=== PATIENT | female | born 1955 | race African-American/Black ===

== ENCOUNTER 2017-01-23 15:30 | Outpatient (CLI) | payer MEDICARE ==
[2017-01-23 16:07] LABS: EOSINOPHILS % (AUTO) 3.9 % (0.0-3.0); LYMPHOCYTES % (AUTO) 34.7 % (20.0-45.0); MEAN CORPUSCULAR HEMOGLOBIN 30.5 PG (27.0-31.0); MEAN CORPUSCULAR HGB CONC 33.4 G/DL (32.0-36.0); MEAN CORPUSCULAR VOLUME 91 FL (80-99); MEAN PLATELET VOLUME 6.1 FL (6.5-10.1); MONOCYTES % (AUTO) 6.5 % (1.0-10.0); NEUTROPHILS % (AUTO) 53.9 % (45.0-75.0); PLATELET COUNT 266 K/UL (150-450); RED BLOOD COUNT 4.78 M/UL (4.20-5.40); RED CELL DISTRIBUTION WIDTH 12.5 % (11.6-14.8); WHITE BLOOD COUNT 5.8 K/UL (4.8-10.8)
--- NOTE | 2017-01-23 16:37 | Diagnostic Imaging Report ---
Indication: COUGH Technique: 2 views of the chest Comparison: none. Findings: Lungs and pleural spaces are clear. Heart size is normal. Bones are unremarkable.. Impression: No acute process
[2017-01-23 16:38] LABS: ALANINE AMINOTRANSFERASE 23 U/L (3-33); ALBUMIN/GLOBULIN RATIO 1.3 (1.0-2.7); ANION GAP 10 (5-15); ASPARTATE AMINO TRANSFERASE 19 U/L (5-40); CALCIUM 9.7 mg/dL (8.6-10.2); CARBON DIOXIDE 26 mEQ/L (20-30); CHLORIDE 104 mEQ/L (98-107); CREATININE 0.8 mg/dL (0.5-0.9); CRP QUANT 1.5 mg/dL (< 0.5); GLOMERULAR FILTRATION RATE > 60 mL/min (>60); HEMOLYSIS 4; POTASSIUM 4.1 mEQ/L (3.4-4.9); SODIUM 140 mEQ/L (135-145); TOTAL PROTEIN 7.1 g/dL (6.6-8.7)
[2017-01-23 17:23] LABS: ERYTHROCYTE SEDIMENTATION RATE 22 MM/HR (0-30)
[2017-01-24 14:00] LABS: ANTI-NUCLEAR ANTIBODY SCREEN Negative (Negative)
[2017-01-27 08:08] LABS: ANGIOTENSIN CONVERTING ENZYME 43 U/L (14-82)
== END 2017-01-23 17:30 | disposition home or self-care (01) ==
LOC: RAD 15:30
DX: R05 Cough (principal); L03.90 Cellulitis, unspecified
CPT/HCPCS: 36415; 71020; 80053; 82164; 85025; 85651; 86021; 86039; 86140